=== PATIENT | female | born 2000 | race Caucasian/White ===

== ENCOUNTER 2021-09-16 12:10 | Emergency (ER) | payer SELFPAY ==
--- NOTE | 2021-09-16 12:14 | ED.URI ---
HPI - URI/Sore Throat General Chief Complaint: Upper Respiratory Infection Stated Complaint: back pain/schroeder/chills/hot flashes Time Seen by Provider: 09/16/21 12:17 Source: patient and RN notes reviewed History of Present Illness HPI Narrative: Patient is a 21-year-old female who presents the urgent care with her mother with complaints of headache, chills, body aches and hot flashes. Patient has had multiple exposures to COVID within the last month with every family member being positive on and off. Patient has not been vaccinated. States her symptoms started early this morning and she has taken Tylenol for her headache. Denies of any nausea or vomiting. Denies any cough or shortness of breath. No other acute complaints. No acute distress noted. Mother and patient aware of the plan of care. Some parts of this dictation were generated by voice recognition software and may contain typographical and/or grammatical inaccuracies. Related Data Home Medications Medication Instructions Recorded Confirmed No Home Medications 09/16/21 09/16/21 Allergies Allergy/AdvReac Type Severity Reaction Status Date / Time No Known Allergies Allergy Unverified 09/16/21 12:27 Review of Systems Review of Systems: CONSTITUTIONAL: Reports of chills and sweats with fever EYES: Denies visual changes, redness, or discharge. ENT: Denies rhinorrhea, congestion, sore throat, or otalgia. CARDIOVASCULAR: Denies chest pain, palpitations, or edema. RESPIRATORY: Denies cough or dyspnea. GASTROINTESTINAL: Denies abdominal pain, nausea, vomiting, or diarrhea. GENITOURINARY: Denies dysuria or hematuria. SKIN: Denies rash or itching. MUSCULOSKELETAL: Denies back pain, joint pain. Reports of body aches Neurological: Reports of headaches All other systems reviewed are negative, except as documented in HPI. PMFSH Comments At the time of my signature, I reviewed and agree with the nursing past medical, surgical, social, and family history. There is no relevant family history pertinent to the patient complaint. Exam Narrative: GENERAL: This is a well-nourished, well-developed patient. Appears fatigued HEAD: normocephalic, atraumatic. EYES: PERRL. Sclera clear/white. Vision is grossly intact. EARS: External ears normal, auditory canals clear and without drainage, TMs normal without perforation. Hearing grossly intact. NOSE: External nose normal with no obvious nasal discharge. Mild bilateral erythemic nares with clear to yellow rhinorrhea THROAT: Mucous membranes moist, posterior pharynx clear. Moderate postnasal drainage NECK: Neck supple CARDIOVASCULAR: Regular rate and rhythm without murmurs, gallops, or rubs. RESPIRATORY: Clear to auscultation. Breath sounds equal bilaterally. No wheezes, rales, or rhonchi. SKIN: Slightly flushed. Warm, intact with no suspicious lesions or rash, good texture and turgor. NEURO: awake, alert, and oriented to person, place and time. There were no obvious focal neurologic abnormalities. EXTREMITIES: No clubbing, cyanosis, or edema. Course Course Level of Care: Express Care Visit Vital Signs Vital signs: Vital Signs Temperature 98.9 F 09/16/21 12:21 Pulse Rate 99 09/16/21 12:21 Respiratory Rate 16 09/16/21 12:21 Blood Pressure 146/75 H 09/16/21 12:21 Pulse Oximetry 100 09/16/21 12:21 Temperature 98.9 F 09/16/21 12:21 Pulse Rate 99 09/16/21 12:21 Respiratory Rate 16 09/16/21 12:21 Blood Pressure 146/75 H 09/16/21 12:21 Pulse Oximetry 100 09/16/21 12:21 Reviewed-patient is informed that they may have pre-hypertension or hypertension based on a blood pressure reading in the department. I recommend the patient call the primary care provider listed on their discharge instructions or a physician of their choice this week to arrange follow-up for further evaluation of possible pre-hypertension or hypertension. MDM - URI/Sore Throat MDM Narrative Medical decision making narrative: Reviewed
[2021-09-16 12:21] VITALS: BP 146/75; PULSE 99; RESP 16; TEMP 37.2; O2SAT 100
== END 2021-09-16 13:04 | disposition home or self-care (01) ==
PROVIDERS: Emergency Provider Nurse Practitioner Family
DX: B34.9 Viral infection, unspecified (principal)
CPT/HCPCS: 87804; 99203; G0463

== ENCOUNTER 2021-11-17 15:23 | Emergency (ER) | payer SELFPAY ==
--- NOTE | 2021-11-17 15:26 | ED.UPPEXIN ---
HPI - Extremity Injury (Upper) General Chief Complaint: Extremity Injury, Upper Stated Complaint: right wrist injury Time Seen by Provider: 11/17/21 15:27 Source: patient and RN notes reviewed History of Present Illness HPI narrative: Patient is a 21-year-old female who presents the urgent care with complaints of right wrist pain. Patient denies of any known injury. States that she has been wearing an [id number] splint. 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 Patient has been taking ibuprofen without much relief. No other acute complaints. No acute distress noted. Patient aware of the plan of care. Some parts of this dictation were generated by voice recognition software and may contain typographical and/or grammatical inaccuracies. Related Data Allergies Allergy/AdvReac Type Severity Reaction Status Date / Time No Known Allergies Allergy Verified 11/17/21 15:36 Review of Systems Review of Systems: CONSTITUTIONAL: Denies fever, chills, or sweats. EYES: Denies visual changes, redness, or discharge. ENT: Denies rhinorrhea, congestion, sore throat, or otalgia. CARDIOVASCULAR: Denies chest pain, palpitations, or edema. RESPIRATORY: Denies cough or dyspnea. GASTROINTESTINAL: Denies abdominal pain, nausea, vomiting, or diarrhea. GENITOURINARY: Denies dysuria or hematuria. SKIN: Denies rash or itching. MUSCULOSKELETAL: Reports of right wrist pain with no known injury or trauma NEUROLOGIC: Denies headache, numbness, or weakness. All other systems reviewed are negative, except as documented in HPI. PMFSH Comments At the time of my signature, I reviewed and agree with the nursing past medical, surgical, social, and family history. There is no relevant family history pertinent to the patient complaint. Exam Narrative: GENERAL: This is a well-nourished, well-developed patient, in no apparent distress. HEAD: normocephalic, atraumatic. EYES: PERRL. Sclera clear/white. Vision is grossly intact. EARS: External ears normal NOSE: External nose normal with no obvious nasal discharge, nares without redness, no rhinorrhea. THROAT: Mucous membranes moist NECK: Neck supple CARDIOVASCULAR: Regular rate and rhythm without murmurs, gallops, or rubs. RESPIRATORY: Clear to auscultation. Breath sounds equal bilaterally. No wheezes, rales, or rhonchi. SKIN: warm, intact with no suspicious lesions or rash, good texture and turgor. NEURO: awake, alert, and oriented to person, place and time. There were no obvious focal neurologic abnormalities. EXTREMITIES: No obvious deformity noted to right upper extremity. Range of motion to right wrist within normal limits. No tenderness. Rotation and flexion of the right wrist within normal limits. Positive strong right radial pulse with capillary refill less than 2 seconds. Course Course Level of Care: Express Care Visit Vital Signs Vital signs: Vital Signs Temperature 99.1 F 11/17/21 15:28 Pulse Rate 96 11/17/21 15:28 Respiratory Rate 16 11/17/21 15:28 Blood Pressure 149/94 H 11/17/21 15:28 Pulse Oximetry 100 11/17/21 15:28 Temperature 99.1 F 11/17/21 15:28 Pulse Rate 96 11/17/21 15:28 Respiratory Rate 16 11/17/21 15:28 Blood Pressure 149/94 H 11/17/21 15:28 Pulse Oximetry 100 11/17/21 15:28 Reviewed-patient is informed that they may have pre-hypertension or hypertension based on a blood pressure reading in the department. I recommend the patient call the primary care provider listed on their discharge instructions or a physician of their choice this week to arrange follow-up for further evaluation of possible pre-hypertension or hypertension. MDM - Extremity Injury (Upper) MDM Narrative Medical decision making narrative: Advised the patient to complete the steroid regimen as prescribed. Be sure to eat and drink with the medication. Use the ibuprofen as needed for pain. Limit any str
[2021-11-17 15:28] VITALS: BP 149/94; PULSE 96; RESP 16; TEMP 37.3; O2SAT 100
== END 2021-11-17 15:49 | disposition home or self-care (01) ==
PROVIDERS: Emergency Provider Nurse Practitioner Family
DX: M77.8 Other enthesopathies, not elsewhere classified (principal); Z86.16 Personal history of COVID-19
CPT/HCPCS: 99213; G0463

== ENCOUNTER 2022-11-10 14:08 | Outpatient (CLI) | payer OTHER, SELFPAY ==
--- NOTE | ~2022-11-10 | XR_ITS ---
EXAM: XR wrist RT min 3V DATE: 11/10/2022 14:22 HISTORY: M25.539 - Pain in unspecified wrist . COMPARISON: None available. FINDINGS: Normal mineralization. No fracture or dislocation. No lytic or blastic lesion. Ulnar posit merlin variance. Joint spaces are maintained. No erosion or periosteal change. Soft tissues within judith l limits. IMPRESSION: No acute osseous finding in the right wrist. Ulnar positive variance. Reviewed, dictated and finalized at location K. IMPRESSION: No acute osseous finding in the right wrist. Ulnar positive varianc e.
[2022-11-10 19:26] LABS: Alanine Aminotransferase 21 U/L (6-35); Alkaline Phosphatase 65 U/L (38-126); Anion Gap 4 mmol/L (8-16); Aspartate Amino Transferase 36 U/L (14-36); Blood Urea Nitrogen 8 mg/dL (7-17); Calcium 9.3 mg/dL (8.4-10.2); Carbon Dioxide 27 mmol/L (22-30); Chloride 104 mmol/L (98-107); Cholesterol 120 mg/dL (0-200); Estimated Glomerular Filt Rate > 60; Glucose 96 mg/dL (65-110); HDL Direct 43 mg/dL; Potassium 4.6 mmol/L (3.4-5.0); Sodium 135 mmol/L (137-145); Triglycerides 37 mg/dL (<150)
[2022-11-10 19:27] LABS: Hematocrit 40.8 % (37.0-47.0); Hemoglobin 13.8 g/dL (12.0-15.0); Mean Corpuscular HGB Conc 33.8 g/dl (32-36); Mean Corpuscular Hemoglobin 30.3 pg (26-34); Mean Corpuscular Volume 89.7 fl (80-100); Mean Platelet Volume 11.1 fl (7.4-10.4); Platelet Count Result 251 k/mm3 (150-375); Red Blood Count 4.55 M/mm3 (4.2-5.4); Red Cell Distribution Width 12.4 % (11.5-14.5); White Blood Count 7.4 K/mm3 (4.5-10.0)
[2022-11-10 19:31] LABS: LDL Cholesterol Direct 66 mg/dL
== END 2022-11-10 14:09 | disposition home or self-care (01) ==
PROVIDERS: PCP Family Medicine; Visit Provider Family Medicine
DX: Z00.00 Encounter for general adult medical examination without abnormal findings (principal); M25.539 Pain in unspecified wrist
CPT/HCPCS: 36415; 73110; 80053; 80061; 85027

== ENCOUNTER 2025-07-19 13:30 | Emergency (ER) | payer SELFPAY ==
[2025-07-19 13:34] VITALS: BP 154/72; PULSE 104; RESP 20; TEMP 36.7; O2SAT 100
--- NOTE | 2025-07-19 13:52 | ED_ITS ---
HPI - Dental/Oral General Chief complaint: Dental/Oral Stated complaint: Head feels heavy Time Seen by Provider: 07/19/25 13:53 Source: patient, RN notes reviewed and old records reviewed Mode of arrival: ambulatory Limitations: no limitations History of Present Illness HPI Narrative: 24 year old female who presents to [facility] care with complaints of dental pain. She reports she has dental pain in her molar areas on both sides can't pinpoint any specific tooth know that she has cavities in her teeth has not been able to see dentist in several years. Patient reports that she has some pain radiating to her ears and also has some right sided headache discomfort. Patient reports that she has been taking Ibuprofen for her discomfort.She denies any sore throat or any cough or any known fevers chills or sweats or any body aches. MD Complaint: tooth pain (can't identify specific tooth radiates to ears and right side of head.) Onset (ago): day(s) (3) Severity scale (1-10): 7 Treatment prior to arrival: oral analgesic (Ibuprofen) Related Data Allergies Allergy/AdvReac Type Severity Reaction Status Date / Time No Known Allergies Allergy Verified 07/19/25 13:47 Review of Systems Review of Systems: CONSTITUTIONAL: Denies fever, chills, or sweats. ENT: Denies rhinorrhea, congestion, sore throat, or otalgia. Reports dental pain generalized in molars up and down right and left with radiation of pain to ears and right sided headache CARDIOVASCULAR: Denies chest pain, palpitations, or edema. RESPIRATORY: Denies cough or dyspnea. SKIN: Denies rash or itching. MUSCULOSKELETAL: Denies myalgia. NEUROLOGIC: Reports right sided headache All systems reviewed & are unremarkable except as noted in HPI and below [facility] Past Medical History Medical History (Updated 07/20/25 @ 13:57 by Trina Gaona APRN) Anxiety and depression Strep throat Family History Family History Father Hypertension Depression Mother Depression Grandparent Asthma Hypertension Cancer Grandparent Asthma Cancer Diabetes mellitus Hypertension Depression Heart disease Social History Social History Smoking status: Never smoker Substance use: never Substance use type: does not use Lack of Transportation: No Lack of Food: Never True Current Housing: I Have Housing Concerned About Future Housing: No Difficulty Paying Gas/Electric Bills: No Difficulty Paying for Meds: No Currently Unemployed: No Education: High School Diploma/GED Difficulty w/ Childcare or Family Care: No Living arrangements: with family Occupation/Education: occupation Additional occupation/education comments: [employer] almost [employer]. Gender identity (if verbalized by the patient): Female Agree to blood products: Yes Comments At time of signature, agree with nursing past medical, surgical, social and family history. There is no relevant family history pertinent to the presenting complaint Exam Narrative: GENERAL: Well-appearing, well-nourished, and in some acute distress. HEAD: Normocephalic, atraumatic. EYES: PERRLA and EOMI. ENT: Nares clear, no rhinorrhea or epistaxis. Mucous membranes moist. reports dental pain bilateral molars radiating to ears with right sided headache, no obv ious caries noted or fractured teeth,no gum redness or evidence of abscess, Patient can't identify specific tooth or teeth, TM's normal with no redness of TM or ear canals, temporal pulses palpable bilaterally, reports right sided headache also. is afebrile NECK: Supple.no lymphadenopathy CHEST: Clear to auscultation. No respiratory distress.no cough noted SAO2 100% on room air HEART: Regular rate and rhythm. No murmur heard. Normal peripheral pulses. SKIN: Warm, dry, no rash. NEURO: No focal deficits. Alert and oriented x3. Course Course Emergency Course: Patient is aware of diagnosis, understands and agrees to treatment plan. Anticipatory guidance given. Patient agrees to follow-up as directed and is aware of reasons to seek care at the emergency department. Portions of this record may have been created with voice recognition software Level of Care: Express Care Visit Vital Signs Vital signs: Vital Signs Temperature 36.7 C 07/19/25 13:34 Pulse Rate 104 H 07/19/25 13:34 Respiratory Rate 20 07/19/25 13:34 Blood Pressure 154/72 H 07/19/25 13:34 Pulse Oximetry 100 07/19/25 13:34 Oxygen Delivery Room Air 07/19/25 13:34 Temperature 36.7 C 07/19/25 13:34 Pulse Rate 104 H 07/19/25 13:34 Respiratory Rate 20 07/19/25 13:34 Blood Pressure 154/72 H 07/19/25 13:34 Pulse Oximetry 100 07/19/25 13:34 Oxygen Delivery Room Air 07/19/25 13:34 Reviewed MDM - Dental/Oral MDM Narrative Medical decision making narrative: Patients pain and complaint coupled with physical findings are consistent with dentalgia. There are no focal signs of space occupying lesions that are c ompromising to the airway; no dysphagia, odynophagia, dysphonia, or dyspnea. No uvular deviation or soft palate edema. Patient is non-toxic appearing. The floor of the mouth is soft with no signs of Osmel's Angina; no induration below mandible, no neck pain.? Patient is without trismus or drooling and able to swallow secretions.? Patient is felt appropriate for discharge home with dental follow up. Differential Diagnosis Differential diagnosis: Likely dental caries, toothache and other (bilateral otalgia, headache pain) Medical Records Attestation: I reviewed the patient's medical records. Critical Care Time Critical Care Time Critical Care Time: No Discharge Plan Discharge Clinical Impression: Pain, dental, Otalgia of both ears Headache Qualifiers: Headache type: unspecified Headache chronicity pattern: acute headache Intractability: not intractable Qualified Code(s): R51.9 - Headache, unspecified Patient Disposition: Home Condition: Stable Instructions: Antibiotic Form, Toothache (ED) Additional Instructions: Avoid temperature extremes May apply heat or ice to the face Gentle brushing and flossing Antibiotic as directed Tylenol for lesser pain may use Tylenol Arthritis 650 mg 1 tab in between doses of ibuprofen for pain Use ibuprofen regularly for the next 2-3 days 600 mg 4 times a day with food no more than 2400 mg 24 hours Zyrtec Claritin or Thuy daily Follow-up with the dentist as soon as possible--see the list provided If your symptoms persist, change or worsen significantly before you can contact your personal physician then please, without delay, go to the emergency department for further evaluation. Follow-up with PCP in 7-10 days or sooner if needed Follow up with PCP soon in regards to your blood pressure which is elevated above threshold for referral. Blood pressure above 120/80 may indicate pre- hypertension.152/72 Can go to dental hygiene program at [facility] for dental cleaning for low fee, call school for information and scheduling. Patient Language: Turkmen Prescriptions: New amoxicillin 875 mg tablet 875 mg PO Q12H Qty: 20 0RF Rx Instructions: take all doses of medication Follow-up/Referrals: PHYSICIAN,SPARK TESTER [Primary Care Provider, Internal Medicine] Stand Alone Forms: Work/School Release IP Time of Disposition: 14:12 Quality Jessica Coma Scale Eyes: Open Verbal: Oriented and Alert Motor: Follows Commands Jessica Coma Total Score: 15
--- OUTSIDE RECORDS SUMMARY | 2025-07-19 16:32 | XMS_ITS | Clinical Summary ---
Author Organization [facility] Address [address] [place] [address] Phone Care Team Providers Care Debeader Name Role Phone Provider, None Primary Care Provider Unavailabl e Allergies No known active allergies Medications No known medications Social History Tobacco Use Types Packs/Day Years Used Date Smoking Tobacco: Never Smokeless Tobacco: Never Alcohol Use Standard Drinks/Week Comments No 0 (1 standard drink = 0.6 oz pur e alcohol) Comments No Sex and Gender Information Value Date Recorded Sex Assigned at Not on file Legal Sex Female 7:46 PM CDT Gender Identity Not on file Sexual Orientation Not on file Last Filed Vital Signs Vital Sign Reading Time Taken Comments Blood Pressure 139/77 08/08/2022 1:47 AM INTRAOPERATIVE NEURO TECH Pulse 77 08/08/2022 1:47 AM INTRAOPERATIVE NEURO TECH Temperature 38.8 C (101.8 F) 08/08/2022 1:47 AM INTRAOPERATIVE NEURO TECH Respiratory Rate 20 08/08/2022 1:47 AM INTRAOPERATIVE NEURO TECH Oxygen Saturation 96% 08/08/2022 1:47 AM INTRAOPERATIVE NEURO TECH Inhaled Oxygen Concentration - - Weight 71.2 kg (157 lb) 08/08/2022 1:47 AM INTRAOPERATIVE NEURO TECH Height 160 cm (5' 3) 08/08/2022 1:47 AM INTRAOPERATIVE NEURO TECH Body Mass Index 27.81 08/08/2022 1:47 AM INTRAOPERATIVE NEURO TECH Plan of Treatment Health Maintenance Due Date Last Done Comments Hepatitis C Virus (HCV) Screening 2000 TdaP Immunization 2000 Varicella Immunization (1 of 2 - 13+ 2-dose series) 2013 Human Papillomavirus (HPV) Immunization (1 - 3-dose series) 2015 Hepatitis B Immunization (1 of 3 - 19+ 3-dose series) 2019 Influenza Immunization (#1) 2025 SARS-COV-2 Immunization (2024- season) 2025 Respiratory Syncytial Virus (RSV) Immunization (Adult) (1 - 1-dose 75+ series) 2075 Meningococcal Immunization (ACWY) Aged Out No longer eligible based on patient's age to complete this topic Pneumococcal Immunization Combined Aged Out No longer eligible based on patient's age to complete this topic Rotavirus Immunization Aged Out No lo nger eligible based on patient's age to complete this topic [place] Care Teams Debeader Relationship Specialty Start Date End Date Provider, None [place] PCP - General 08/08/22
== END 2025-07-19 14:20 | disposition home or self-care (01) ==
PROVIDERS: Emergency Provider Registered Nurse
DX: K08.89 Other specified disorders of teeth and supporting structures (principal); H92.03 Otalgia, bilateral; R51.9 Headache, unspecified
CPT/HCPCS: 99213; G0463